=== PATIENT | female | born 1980 ===

== ENCOUNTER → 2020-04-17 12:59 | Outpatient (BNVA) | payer MEDICAID, SELFPAY | PROVIDERS: PCP Nurse Practitioner Adult Health; Referring Provider Nurse Practitioner Adult Health; Visit Provider Advanced Practice Midwife | DX: O09.299 Supervision of pregnancy with other poor reproductive or obstetric history, unspecified trimester (principal); Z3A.00 Weeks of gestation of pregnancy not specified | CPT/HCPCS: 99211 ==

== ENCOUNTER 2020-05-01 13:59 | Outpatient (REF) | payer OTHER, SELFPAY ==
[2020-05-01 16:20] LABS: MANUAL DIFF FLAG NO
[2020-05-01 16:29] LABS: Basophils Absolute Auto 0.1 X10*3/uL (0.0-0.2); Basophils Percent Auto 0.5 % (0-2); Eosinophils Absolute Auto 0.2 X10*3/uL (0.0-0.4); Eosinophils Percent Auto 1.4 % (0-4); Hematocrit 39.5 % (37-47); Hemoglobin 12.7 g/dl (12.0-16.0); Imm Gran Abs Auto 0.08 X10*3/uL (0.00-0.03); Imm Gran Pct Auto 0.7 % (0.0-0.4); Lymphocytes Percent Auto 24.7 % (20-40); Mean Corpuscular HGB Conc 32.2 g/dl (31.0-35.0); Mean Corpuscular Hemoglobin 28.4 pg (27.0-33.0); Mean Corpuscular Volume 88.4 fL (80-98); Mean Platelet Volume 10.6 fL (9.4-12.3); Monocytes Percent Auto 8.3 % (2-11); Neutrophils Absolute Auto 7.7 X10*3/uL (2.0-8.3); Neutrophils Percent Auto 64.4 % (45-73); Platelet Count 339 X10*3/uL (160-400); Red Blood Count 4.47 X10*6/uL (4.20-5.50); Red Cell Distribution Width 14.2 % (11.0-16.0); White Blood Count 11.9 X10*3/uL (4.8-10.8)
[2020-05-01 17:24] LABS: Amphetamine Screen Urine Not Detected (Not Detect); Barbiturates, Urine Not Detected (Not Detect); Benzodiazepines Screen Urine Not Detected (Not Detect); Cannabinoid Screen Urine Not Detected (Not Detect); Cocaine Screen Urine Not Detected (Not Detect); Opiate Screen Urine Not Detected (Not Detect); Phencyclidine Screen Urine Not Detected (Not Detect)
[2020-05-02 07:55] LABS: HBsAGNum1 0.23 S/CO (0.00-0.99); HIV AB/AG Nonreactive (Nonreactive); HIV Num 1 0.12 S/CO (0.00-0.99); Hepatitis B Surface Antigen Negative (Negative); ~HepC Num1 0.12 S/CO (0.00-0.79); ~Hepatitis C Antibody Nonreactive (Nonreactive)
[2020-05-02 09:00] LABS: Syphilis Screen Nonreactive (Nonreactive)
[2020-05-02 23:08] LABS: Rubella IgG Antibody <0.90 index
== END 2020-05-01 14:00 | disposition home or self-care (01) ==
LOC: HO.LAB 13:59
PROVIDERS: Visit Provider Advanced Practice Midwife
DX: Z34.90 Encounter for supervision of normal pregnancy, unspecified, unspecified trimester (principal); Z86.69 Personal history of other diseases of the nervous system and sense organs
CPT/HCPCS: 36415; 80307; 85025; 86762; 86780; 86787; 86803; 86850; 87086; 87340; 87389

== ENCOUNTER 2020-05-04 11:25 | Outpatient (REF) | payer OTHER, SELFPAY ==
--- NOTE | 2020-05-04 11:30 | US_ITS ---
EXAMINATION: OBSTETRICAL ULTRASOUND, FIRST TRIMESTER HISTORY: 39-year-old with unknown LMP Viability LMP: Uncertain COMPARISON: None TECHNIQUE: Real time transabdominal imaging with color and M-mode Doppler. Transvaginal ultrasound was performed using an endovaginal probe. FINDINGS: A single, live IUP CRL of 6.1 mm c/w 6.3wks is noted. Heart Rate: 122 beats per minute. Both maternal ovaries are seen and appear normal. GESTATIONAL AGE: 1. GA from LMP: N/A wks 2. GA from AUA: 6.3 wks ESTIMATED DATE OF DELIVERY: 1. RE from LMP: N/A 2. RE from AUA: 12/25/2020 US/US OB <= 14 weeks fetus IMPRESSION: 1. A single live IUP 2. CRL corresponds to 6.3 weeks of gestation 3. Normal yolk sac Follow-up in approximately 6 weeks for NT evaluation (not scheduled). Thank you very much for this referral.
--- NOTE | 2020-05-04 11:30 | US_ITS ---
EXAMINATION: OBSTETRICAL ULTRASOUND, FIRST TRIMESTER HISTORY: 39-year-old with unknown LMP Viability LMP: Uncertain COMPARISON: None TECHNIQUE: Real time transabdominal imaging with color and M-mode Doppler. Transvaginal ultrasound was performed using an endovaginal probe. FINDINGS: A single, live IUP CRL of 6.1 mm c/w 6.3wks is noted. Heart Rate: 122 beats per minute. Both maternal ovaries are seen and appear normal. GESTATIONAL AGE: 1. GA from LMP: N/A wks 2. GA from AUA: 6.3 wks ESTIMATED DATE OF DELIVERY: 1. RE from LMP: N/A 2. RE from AUA: 12/25/2020 US/US OB transvaginal IMPRESSION: 1. A single live IUP 2. CRL corresponds to 6.3 weeks of gestation 3. Normal yolk sac Follow-up in approximately 6 weeks for NT evaluation (not scheduled). Thank you very much for this referral.
== END 2020-05-04 11:26 | disposition home or self-care (01) ==
LOC: HO.US 11:25
PROVIDERS: PCP Nurse Practitioner Adult Health; Visit Provider Advanced Practice Midwife
DX: O35.9XX0 Maternal care for (suspected) fetal abnormality and damage, unspecified, not applicable or unspecified (principal)
CPT/HCPCS: 76801; 76817

== ENCOUNTER 2020-05-20 11:53 | Emergency (ER) | payer OTHER, SELFPAY ==
[2020-05-20 11:57] VITALS: BP 138/78; PULSE 90; RESP 18; TEMP 36.7; O2SAT 99; BMI 30.8
--- NOTE | 2020-05-20 13:13 | US_ITS ---
EXAMINATION: US FIRST TRIMESTER CLINICAL INFORMATION: Cramping LMP: 05/04/2020 Beta-hCG: Unknown COMPARISON: None available. TECHNIQUE: Transabdominal imaging was performed. FINDINGS: UTERUS AND INTRAUTERINE GESTATIONAL SAC: There is a single intrauterine gestational sac. CROWN-RUMP LENGTH (CRL) : 1.95 cm, estimated age 8 weeks 4 days, estimated date of confinement is 05/04/2020 YOLK SAC: Found. HEART MOTION: 170 BPM. SUBCHORIONIC HEMORRHAGE: None OVARIES: Right: Normal Left: Normal small cyst dominant follicle 1.5 x 1.4 x 1.1 cm. FREE FLUID: None OTHER FINDINGS: None US/US OB <= 14 weeks fetus IMPRESSION: 1. Single live intrauterine . 2. Estimated age 8 weeks 4 days..
--- NOTE | 2020-05-20 13:16 | ED.PREGNANCY ---
HPI - General Chief complaint: Abdominal Pain Stated complaint: abd pain- 8 weeks preg - high risk Time Seen by Provider: 05/20/20 13:08 Source: patient Mode of arrival: ambulatory Limitations: no limitations History of Present Illness HPI Narrative: This is a 31-year-old female who is a A1 who is currently nine weeks gestation and history of migraine headaches presenting today with complaint of 3 days of intermittent cramping like lower abdominal pain some mild lower back pain states she called her canned food reconditioning inspector who advised her to come to emergency room for evaluation given her history of miscarriages. She denies any dysuria, hematuria, vaginal bleeding or discharge. States no concern for STI. No rash or lesion. No nausea vomiting. MD Complaint: abdominal pain Quality: Cramping Associated symptoms: denies other symptoms Vaginal bleeding: none Patient : Yes Related Data Previous Rx's Medication Instructions Recorded vitamin with calcium 1 tab PO DAILY 30 Days #30 tab 04/17/20 no.72-iron 27 mg-folic acid 1 mg tablet Allergies Allergy/AdvReac Type Severity Reaction Status Date / Time amoxicillin Allergy Unknown shortness Verified 05/21/20 13:34 of breath penicillin V Allergy Unknown difficulty Verified 05/21/20 13:34 breathing, shortness of breath Penicillins [PENICILLINS] Allergy Unknown UNKNOWN Verified 05/21/20 13:34 zolpidem [Ambien] Allergy Unknown hallucinati Verified 05/21/20 13:34 ons acetaminophen AdvReac Intermediate heart Verified 05/21/20 13:34 [From Excedrin Migraine] palpitations aspirin AdvReac Intermediate heart Verified 05/21/20 13:34 [From Excedrin Migraine] palpitations caffeine AdvReac Intermediate heart Verified 05/21/20 13:34 [From Excedrin Migraine] palpitations Review of Systems Review of Systems: Constitutional: No Weight loss, No Fever, No Chills, No Night Sweats, No Fatigue, No Malaise ENT/Mouth: No Hearing loss, No Ear Pain, No Nasal Congestion, No Sinus Pain, No Hoarseness, No sore throat, No Rhinorrhea, No Swallowing Difficulty Eyes: No Eye Pain, No Swelling, No Redness, No Foreign Body, No Discharge, No Vision Changes Cardiovascular: No Chest Pain, No SOB, No Dyspnea on Exertion, No Orthopnea, No Edema, No Palpitations Respiratory: No Cough, No Sputum, No Wheezing, No Smoke Exposure, No Dyspnea Gastrointestinal: No Nausea, No Vomiting, No Diarrhea, No Constipation, + abdominal Pain, No Hematochezia, No Melena Genitourinary: no irregular bleeding, No Dysuria, No Urinary Frequency, No Hematuria, No Urinary Incontinence, No Urgency, No Flank Pain, No Urinary Flow Changes Musculoskeletal: No joint pain, No Myalgias, No Joint Swelling Skin: No Skin Lesions, No rash Neuro: No Weakness, No Numbness, No Paresthesias, No Loss of Consciousness, No Dizziness, No Headache Psych: No Social Issues Heme/Lymph: No Bruising, No Bleeding,No Lymphadenopathy Endocrine: No Polyuria, No Polydipsia, No Temperature Intolerance Yes all other systems are reviewed and are negative [facility] Past Medical History Medical History Miscarriage Surgical History Hx of abdominoplasty Family History Family History Mother History of left breast cancer Father No problems noted. Sister History of asthma History of bipolar disorder History of migraine Family history of MS (multiple sclerosis) Maternal Grandmother No problems noted. Maternal Grandfather No problems noted. Paternal Grandmother No problems noted. Paternal Grandfather No problems noted. 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 [employer] Current occupational exposures/hazards: Yes Physical Exam Vital Signs: Vital Signs: Last Vital Signs Temp 98.0 F 05/20/20 11:57 Pulse 74 05/20/20 13:38 Resp 16 05/20/20 13:38 BP 135/70 05/20/20 13:38 Pulse Ox 99 05/20/20 13:38 Body Mass Index 30.8 Reviewed Const: General: cooperative and healthy appearing; No acute distress or intoxicated appearing Nutritional Appearance: average body habitus Orientation/consciousness: patient oriented x3 HENMT: Head: Yes normal to inspection Ears: hearing grossly normal bilaterally Eyes: General: appearance normal, both eyes and all related structures Visual Ferguson: normal visual ferguson by confrontation Neck: Neck: Yes normal visual inspection and No tender Thyroid: Thyroid normal Chest: Chest palpation & inspection: normal inspection of the chest Resp: Effort & Inspection: normal respiratory effort Auscultation: clear to auscultation bilaterally Cardio: Jugular venous distension: no JVD Rhythm: regular rhythm Heart sounds: S1 normal heart sound present and S2 normal heart sound present GI: Inspection: Yes normal to inspection Percussion: Yes normal to percussion Auscultation: normal bowel sounds : General: Yes no CVA tenderness Back/Spine/Pelvis: Back: no CVA tenderness Skin: General skin exam: no rashes or lesions noted Neuro: General: patient oriented x3 Extrem: General: Yes normal to inspection Course Course Course Narrative: Labs show urine slightly concentrated otherwise overall stable. Ultrasound finding consistent with anticipated at 8 weeks. No vaginal bleeding or discharge or dysuria. Given her prior history of miscarriage there is some related concerns/anxiety related to this primarily the reason she came in but feels more reassured after the ultrasound. I did instruct her to increase her fluid intake and follow up with her canned food reconditioning inspector team the next 1-3 days. She feels comfortable plan. No pain or discomfort at this time. Stable for discharge. MDM - OB/Uterine Contractions Medical Records Attestation: I reviewed the patient's medical records. Lab Data Attestation: I reviewed the patient's lab results. Result diagrams: 05/20/20 13:28 05/20/20 13:28 Labs: Lab Results 05/20/20 05/20/20 05/20/20 Range/Units 13:28 13:28 13:28 WBC 14.2 H (4.8-10.8) X10*3/uL RBC 4.53 (4.20-5.50) X10*6/uL Hgb 13.2 (12.0-16.0) g/dl Hct 39.6 (37-47) % MCV 87.4 (80-98) fL MCH 29.1 (27.0-33.0) pg MCHC 33.3 (31.0-35.0) g/dl RDW 14.2 (11.0-16.0) % Plt Count 346 (160-400) X10*3/uL MPV 10.2 (9.4-12.3) fL Immature Gran % (Auto) 0.6 H (0.0-0.4) % Neut % (Auto) 74.4 H (45-73) % Lymph % (Auto) 17.1 L (20-40) % Adair % (Auto) 6.6 (2-11) % Eos % (Auto) 0.8 (0-4) % Baso % (Auto) 0.5 (0-2) % Lymph # (Auto) 2.4 (1.2-4.9) X10*3/uL Adair # (Auto) 0.9 (0.1-1.2) X10*3/uL Eos # (Auto) 0.1 (0.0-0.4) X10*3/uL Baso # (Auto) 0.1 (0.0-0.2) X10*3/uL Abs Immat Gran (auto) 0.09 H (0.00-0.03) X10*3/uL Absolute Neuts (auto) 10.6 H (2.0-8.3) X10*3/uL Absolute Nucleated RBC 0.000 (0.0-0.012) X10*3/uL Nucleated RBC % (auto) 0.0 (0.0-0.2) /100WBC Sodium 139 (135-145) mmol/L Potassium 4.0 (3.3-5.1) mmol/l Chloride 106 (96-108) mmol/L Carbon Dioxide 23 (22-29) mmol/L Anion Gap 14 (12-20) BUN 10 (9-16) mg/dL Creatinine 0.72 (0.5-1.4) mg/dL Estim Creat Clear Calc 109.4 Estimated GFR > 60 Random Glucose 84 (60-115) mg/dL Calcium 9.3 (8.4-10.2) mg/dL Total Bilirubin 0.3 (0.0-1.0) mg/dL AST 14 (5-31) U/L ALT 14 (0-31) U/L Alkaline Phosphatase 65 (39-117) U/L Total Protein 7.4 (6.5-8.0) g/dL Albumin 3.8 (3.5-5.0) g/dL Beta HCG, Quant 93884 mIU/mL Urine Color YELLOW Urine Appearance HAZY Urine pH 6.5 (5.0-8.0) Ur Specific Dowell 1.025 (1.005-1.025) Urine Protein NEG (NEG-TRACE) MG/DL Urine Glucose (UA) NEG (NEG) MG/DL Urine Ketones NEG (NEG) MG/DL Urine Blood NEG (NEG) Urine Nitrite NEG (NEG) Ur Leukocyte Esterase NEG (NEG) Urine RBC 0 (0) /HPF Urine WBC 0-2 (0-4) /HPF Ur Squamous Epith Cells 1+ /LPF Amorphous Sediment 3+ /LPF Urine Bacteria NONE /LPF Granular Casts 0-2 /LPF Blood Type 05/20/20 Range/Units 13:53 WBC (4.8-10.8) X10*3/uL RBC (4.20-5.50) X10*6/uL Hgb (12.0-16.0) g/dl Hct (37-47) % MCV (80-98) fL MCH (27.0-33.0) pg MCHC (31.0-35.0) g/dl RDW (11.0-16.0) % Plt Count (160-400) X10*3/uL MPV (9.4-12.3) fL Immature Gran % (Auto) (0.0-0.4) % Neut % (Auto) (45-73) % Lymph % (Auto) (20-40) % Adair % (Auto) (2-11) % Eos % (Auto) (0-4) % Baso % (Auto) (0-2) % Lymph # (Auto) (1.2-4.9) X10*3/uL Adair # (Auto) (0.1-1.2) X10*3/uL Eos # (Auto) (0.0-0.4) X10*3/uL Baso # (Auto) (0.0-0.2) X10*3/uL Abs Immat Gran (auto) (0.00-0.03) X10*3/uL Absolute Neuts (auto) (2.0-8.3) X10*3/uL Absolute Nucleated RBC (0.0-0.012) X10*3/uL Nucleated RBC % (auto) (0.0-0.2) /100WBC Sodium (135-145) mmol/L Potassium (3.3-5.1) mmol/l Chloride (96-108) mmol/L Carbon Dioxide (22-29) mmol/L Anion Gap (12-20) BUN (9-16) mg/dL Creatinine (0.5-1.4) mg/dL Estim Creat Clear Calc Estimated GFR Random Glucose (60-115) mg/dL Calcium (8.4-10.2) mg/dL Total Bilirubin (0.0-1.0) mg/dL AST (5-31) U/L ALT (0-31) U/L Alkaline Phosphatase (39-117) U/L Total Protein (6.5-8.0) g/dL Albumin (3.5-5.0) g/dL Beta HCG, Quant mIU/mL Urine Color Urine Appearance Urine pH (5.0-8.0) Ur Specific Dowell (1.005-1.025) Urine Protein (NEG-TRACE) MG/DL Urine Glucose (UA) (NEG) MG/DL Urine Ketones (NEG) MG/DL Urine Blood (NEG) Urine Nitrite (NEG) Ur Leukocyte Esterase (NEG) Urine RBC (0) /HPF Urine WBC (0-4) /HPF Ur Squamous Epith Cells /LPF Amorphous Sediment /LPF Urine Bacteria /LPF Granular Casts /LPF Blood Type O Positive Imaging Data Trimester OB ultrasound: Radiologist's impression: Brittany Nur 39 F 1980 [place] [address] Ultrasound Report Signed Patient: Brittany Nur#: [id number] : 1980Acct:[id number] Age/Sex: 39 / FADM Date: 05/20/20 Loc: HO.ED Attending Dr: Ordering Physician: Zacarias Skelton NP Date of Service: 05/20/20 Procedure(s): US OB <= 14 weeks fetus Accession Number(s): [id number] cc: Zacarias Skelton NP~ EXAMINATION: US FIRST TRIMESTER CLINICAL INFORMATION: Cramping LMP: 05/04/2020 Beta-hCG: Unknown COMPARISON: None available. TECHNIQUE: Transabdominal imaging was performed. FINDINGS: UTERUS AND INTRAUTERINE GESTATIONAL SAC: There is a single intrauterine gestational sac. CROWN-RUMP LENGTH (CRL) : 1.95 cm, estimated age 8 weeks 4 days, estimated date of confinement is 05/04/2020 YOLK SAC: Found. HEART MOTION: 170 BPM. SUBCHORIONIC HEMORRHAGE: None OVARIES: Right: Normal Left: Normal small cyst dominant follicle 1.5 x 1.4 x 1.1 cm. FREE FLUID: None OTHER FINDINGS: None US/US OB <= 14 weeks fetus IMPRESSION: 1. Single live intrauterine . 2. Estimated age 8 weeks 4 days.. 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 Steiner as discussed Thank you Prescriptions: No Action Plus (calcium carb) 27 mg iron- 1 mg tablet 1 tab PO DAILY 30 Days Qty: 30 RF: 11 Referrals: Dg Steiner MD [Physician] - 1 week Interventions: ED Discharge Assessment Last Done: 05/20/20 15:47 Discharge Date/Time: 05/20/20 15:50
[2020-05-20 13:34] LABS: Basophils Absolute Auto 0.1 X10*3/uL (0.0-0.2); Basophils Percent Auto 0.5 % (0-2); Eosinophils Absolute Auto 0.1 X10*3/uL (0.0-0.4); Eosinophils Percent Auto 0.8 % (0-4); Hematocrit 39.6 % (37-47); Hemoglobin 13.2 g/dl (12.0-16.0); Imm Gran Abs Auto 0.09 X10*3/uL (0.00-0.03); Imm Gran Pct Auto 0.6 % (0.0-0.4); Lymphocytes Absolute Auto 2.4 X10*3/uL (1.2-4.9); Lymphocytes Percent Auto 17.1 % (20-40); MANUAL DIFF FLAG NO; Mean Corpuscular HGB Conc 33.3 g/dl (31.0-35.0); Mean Corpuscular Hemoglobin 29.1 pg (27.0-33.0); Mean Corpuscular Volume 87.4 fL (80-98); Mean Platelet Volume 10.2 fL (9.4-12.3); Monocytes Absolute Auto 0.9 X10*3/uL (0.1-1.2); Monocytes Percent Auto 6.6 % (2-11); Neutrophils Absolute Auto 10.6 X10*3/uL (2.0-8.3); Neutrophils Percent Auto 74.4 % (45-73); Platelet Count 346 X10*3/uL (160-400); Red Blood Count 4.53 X10*6/uL (4.20-5.50); Red Cell Distribution Width 14.2 % (11.0-16.0); White Blood Count 14.2 X10*3/uL (4.8-10.8)
[2020-05-20 13:36] LABS: Glucose Urine UA NEG (NEG); Leukocyte Esterase Urine NEG (NEG); Nitrite Urine NEG (NEG); PH 6.5 (5.0-8.0); Specific Gravity - Urine 1.025 (1.005-1.025); Urine Blood NEG (NEG); Urine Ketones NEG (NEG); Urine Protein NEG (NEG-TRACE)
[2020-05-20 13:37] LABS: Appearance Urine HAZY; Color Urine YELLOW
[2020-05-20 13:38] VITALS: BP 135/70; PULSE 74; RESP 16; O2SAT 99
[2020-05-20] MEDS: 0.9 % Sodium Chloride 1,000 ML 999 ML IV (13:38)
[2020-05-20 13:47] LABS: RBC Urine 0 /HPF (0); Squamous Epithelial Cell Urine 1+ /LPF; WBC Urine 0-2 /HPF (0-4)
[2020-05-20 13:48] LABS: Amorphous Sediment Urine 3+ /LPF; Granular Casts Urine 0-2 /LPF
[2020-05-20 14:05] LABS: Alanine Aminotransferase 14 U/L (0-31); Albumin Level 3.8 g/dL (3.5-5.0); Alkaline Phosphatase 65 U/L (39-117); Anion Gap 14 (12-20); Aspartate Amino Transferase 14 U/L (5-31); Bilirubin Total 0.3 mg/dL (0.0-1.0); Blood Urea Nitrogen 10 mg/dL (9-16); Calcium 9.3 mg/dL (8.4-10.2); Carbon Dioxide 23 mmol/L (22-29); Chloride 106 mmol/L (96-108); Creatinine Clr Calc Pharmacy 109.4; Estimated Glomerular Filt Rate > 60; Glucose Random 84 mg/dL (60-115); Sodium 139 mmol/L (135-145); Total Protein 7.4 g/dL (6.5-8.0)
[2020-05-20 14:49] LABS: HCG Quantitative 66216 mIU/mL
== END 2020-05-20 15:50 | disposition home or self-care (01) ==
PROVIDERS: Nurse Practitioner Primary Care; Emergency Provider Emergency Medicine; PCP Nurse Practitioner Adult Health
DX: O20.0 Threatened abortion (principal); O09.521 Supervision of elderly multigravida, first trimester; Z3A.08 8 weeks gestation of pregnancy
CPT/HCPCS: 36415; 76801; 80053; 81001; 84702; 85025; 86900; 86901; 96360; 99284

== ENCOUNTER 2020-05-21 13:21 | Outpatient (REF) | payer OTHER, SELFPAY ==
[2020-05-21 17:02] LABS: Appearance Urine CLOUDY; Color Urine YELLOW; Glucose Urine UA NEG (NEG); Leukocyte Esterase Urine NEG (NEG); Nitrite Urine NEG (NEG); Urine Blood NEG (NEG); Urine Ketones NEG (NEG); Urine Protein NEG (NEG-TRACE)
== END 2020-05-21 13:22 | disposition home or self-care (01) ==
LOC: HO.LAB 13:21
PROVIDERS: Visit Provider Advanced Practice Midwife
DX: O26.899 Other specified pregnancy related conditions, unspecified trimester (principal); R10.9 Unspecified abdominal pain; Z3A.00 Weeks of gestation of pregnancy not specified
CPT/HCPCS: 81003; 99212

== ENCOUNTER 2020-05-29 11:06 | Outpatient (REF) | payer OTHER, SELFPAY ==
[2020-05-30 20:53] LABS: C. trachomatis RNA TMA NOT DETECTED (NOT DETECTED); N. gonorrhoeae RNA TMA NOT DETECTED (NOT DETECTED)
[2020-05-31 17:07] LABS: HPV mRNA E6/E7 rflx Not Detected (Not Detected)
== END 2020-05-29 11:07 | disposition home or self-care (01) ==
LOC: HO.LAB 11:06
PROVIDERS: PCP Nurse Practitioner Adult Health; Visit Provider Advanced Practice Midwife
DX: O09.529 Supervision of elderly multigravida, unspecified trimester (principal); Z13.31 Encounter for screening for depression
CPT/HCPCS: 81003; 87491; 87591; 87624; 88142; 99212

== ENCOUNTER 2020-06-15 13:54 | Outpatient (REF) | payer OTHER, SELFPAY ==
--- NOTE | 2020-06-15 13:59 | US_ITS ---
EXAMINATION: OBSTETRICAL ULTRASOUND, FIRST TRIMESTER HISTORY: 39-year-old at 12.3 weeks of gestation AMA NT screening COMPARISON: 05/20/2020 TECHNIQUE: Real time transabdominal imaging with color and M-mode Doppler. FINDINGS: A single, live IUP CRL of 63.6 mm c/w 12.6wks is noted. Heart Rate: 160 beats per minute. Normal yolk sac seen. NT was 1.34.mm. NB Present The embryo appears sonographically wnl for this GA. Left ovary is within normal limits. The right ovary is not visualized. GESTATIONAL AGE: 1. Established GA: 12.3 wks 2. GA from AUA: 12.6 wks ESTIMATED DATE OF DELIVERY: 1. Established RE: 12/25/2020 2. RE from [facility]: 12/22/2020 US/US OB 1T nuc measure IMPRESSION: 1. A single live IUP 2. Size equals dates 3. NT of 1.34 mm MFM Consultation: I reviewed the ultrasound findings along with significance of NT measurement. The NT of less than 3mm is generally reassuring. However, the sensitivity for T21 detection is only 60%. I reviewed the availability of serum aneuploidy screening which includes cell-free DNA and placental protein based tests. I discussed the sensitivity, false-positive rate, and other limitations associated with each test. I also reviewed the availability of invasive diagnostic tests that are associated small but definite risk of miscarriage. We also reviewed the differences between screening tests and diagnostic tests. After our discussion, she opted for the First trimester screening that is based on cell-free DNA or non-invasive testing (NIPT). The result will be faxed to your office in approximately 7 days. A follow up at 18 weeks for survey has been scheduled. Thank you very much for this referral. Majority of this visit was spent reviewing her care and counselling her in face to face time: Total time: 30 min (2, 20, 8)
== END 2020-06-15 13:55 | disposition home or self-care (01) ==
LOC: HO.US 13:54
PROVIDERS: Visit Provider Advanced Practice Midwife
DX: O09.521 Supervision of elderly multigravida, first trimester (principal); O26.841 Uterine size-date discrepancy, first trimester; Z3A.12 12 weeks gestation of pregnancy
CPT/HCPCS: 76813

== ENCOUNTER → 2020-06-28 13:02 | Outpatient (BNVA) | payer OTHER, SELFPAY | PROVIDERS: PCP Nurse Practitioner Adult Health; Visit Provider Advanced Practice Midwife | DX: O09.899 Supervision of other high risk pregnancies, unspecified trimester (principal); O09.522 Supervision of elderly multigravida, second trimester; Z3A.14 14 weeks gestation of pregnancy | CPT/HCPCS: 81003; 99212 ==

== ENCOUNTER 2020-06-29 09:00 | Outpatient (REF) | payer OTHER, SELFPAY ==
[2020-06-29 09:47] LABS: Courtesy Draw Natera Courtesy Draw
== END 2020-06-29 09:01 | disposition home or self-care (01) ==
LOC: HO.LAB 09:00
PROVIDERS: PCP Nurse Practitioner Adult Health; Visit Provider Advanced Practice Midwife
DX: O09.522 Supervision of elderly multigravida, second trimester (principal); Z3A.00 Weeks of gestation of pregnancy not specified
CPT/HCPCS: 36415

== ENCOUNTER 2020-07-04 10:17 | Outpatient (REF) | payer OTHER, SELFPAY | END 2020-07-04 10:18 | disposition home or self-care (01) | LOC: HO.LAB 10:17 | PROVIDERS: Visit Provider Internal Medicine | DX: Z20.822 Contact with and (suspected) exposure to COVID-19 (principal) | CPT/HCPCS: 36415; C9803; U0003; U0005 ==

== ENCOUNTER → 2020-07-19 13:07 | Outpatient (BNVA) | payer OTHER, SELFPAY | PROVIDERS: Visit Provider Advanced Practice Midwife | DX: Z34.90 Encounter for supervision of normal pregnancy, unspecified, unspecified trimester (principal) | CPT/HCPCS: 81003; 99212 ==

== ENCOUNTER 2020-07-27 13:16 | Outpatient (REF) | payer OTHER, SELFPAY ==
--- NOTE | ~2020-07-27 | US_ITS ---
EXAMINATION: US OBSTETRICAL CLINICAL INFORMATION: 40-year-old at 18.3 weeks gestation AMA COMPARISON: 06/15/2020 TECHNIQUE: Real-time transabdominal ultrasound was performed using C1-5 megahertz transducer. FINDINGS: A single, active, fetus is seen in transverse presentation. The placenta is anterior without previa, and the amniotic fluid volume is wnl. MEASUREMENTS: 1. Biparietal Diameter: 4.1 cm; 18.3 wks 2. Occipital Frontal Diameter: 5.4 cm 3. Head Circumference: 16.1 cm; 18.2 wks 4. Abdominal Circumference: 12.4 cm; 18.1 wks 5. Femur Length: 2.8 cm; 18.3 wks 6. Humerus Length: 2.6 cm; 18.1 wks 7. Tibia Length: 2.4 cm; 18.4 wks 8. Ulna Length: 2.5 cm; 19.1 wks 9. Lateral ventricle: 0.74 cm 10. Cerebellum: 1.8 cm; 18.6 wks 11. Cisterna Magna: 0.45 cm 12. Nuchal Fold: 1.99 mm 13. Heart Rate: 133 beats per minute Rt ovary: Unable to visualize Lt ovary: Unable to visualize Cervical length 3.5 cm on T/A. GESTATIONAL AGE: 1. Established GA: 18.3 wks 2. GA from [facility]: 18.3 wks ESTIMATED DATE OF DELIVERY: 1. Established RE: 12/25/2020 2. RE from [facility]: 12/25/2020 ANATOMY: Due to the poor acoustics window, the views of the four-chamber, ventricular septum, LVOT, RVOT, 3 vessel trachea, aortic and ductal arches were suboptimal. In addition the kidneys and spine views were also limited. The visualized anatomy includes but not limited to: 1. Cranium: Normal 2. Intracranial anatomy: cavum septum pellucidi, lateral ventricles, choroid plexus, cerebellum, posterior fossa, third and fourth ventricles. 3. face: orbits, lip/palate, profile, nasal bone 4. Heart: Suboptimal. 5. Diaphragm: Normal 6. Abdominal wall: Normal 7. Cord Insertion: Normal 8. Spine: Suboptimal 9. Stomach: Normal size and shape 10. Right Kidney: Suboptimal 11. Left Kidney: Suboptimal 12. 3 vessel cord: Normal 13. Upper extremity: Open hands, fifth digit. 14. Lower extremity: Tibia, fibula, bilateral feet. 15. Bladder: Normal 16. Genitalia: US/US OB /maternal detail IMPRESSION: 1. Single, living, intrauterine with appropriate biometry. 2. Limited views due to position and poor acoustics window. No abnormalities were seen in visualized anatomy. DISCUSSION: I reviewed today's ultrasound findings. We discussed the limitations of ultrasound in diagnosing aneuploidy and other congenital abnormalities. I reviewed the differences between screening test and diagnostic test. Amniocentesis was discussed and declined. She was informed that the baseline incidence of congenital abnormalities is approximately 3-5%. Not all these conditions are diagnosable in utero. RECOMMENDATIONS: 1. A follow-up in 2 weeks is been scheduled. Thank you for allowing me to participate in her care. Total time 20 minutes. The time spent was devoted to counseling the patient about the disease and diagnosis, coordinating care including reviewing her records, pertinent lab data and studies, as well as discussing diagnostic evaluation and workup, plan therapeutic interventions and future disposition of care. This includes any additional research needed to obtain further information in formulating the plan of care of this patient. This note was generated with a voice recognition program. Please excuse any errors which may have been overlooked during my review of this note. Sometimes these errors may affect the content or meaning of a given sentence.
== END 2020-07-27 13:17 | disposition home or self-care (01) ==
LOC: HO.US 13:16
PROVIDERS: PCP Nurse Practitioner Adult Health; Visit Provider Advanced Practice Midwife
DX: O09.522 Supervision of elderly multigravida, second trimester (principal); Z3A.18 18 weeks gestation of pregnancy
CPT/HCPCS: 76811

== ENCOUNTER 2020-08-10 13:16 | Outpatient (REF) | payer OTHER, SELFPAY ==
--- NOTE | ~2020-08-10 | US_ITS ---
EXAMINATION: OBSTETRICAL ULTRASOUND, Follow up HISTORY: 40-year-old at 20.3 weeks of gestation Follow-up survey AMA COMPARISON: 07/27/2020 TECHNIQUE: Real time transabdominal imaging with color and M-mode Doppler. PRESENTATION: Transverse PLACENTA LOCATION: Anterior without previa AMNIOTIC FLUID: Normal MEASUREMENTS: 1. Biparietal Diameter: 4.7 cm; 20.2 wks 2. Head Circumference: 17.6 cm; 20.1 wks 3. Abdominal Circumference: 14.5 cm; 19.6 wks 4. Femur Length: 3.3 cm; 20.4 wks 5. Heart Rate: 136 beats per minute WEIGHT: Estimated weight is 334 grams (0 lbs 12 oz) -- 30 %. Normal views of lateral cerebral ventricle, profile, nose/lips, 4ch view, LVOT, RVOT, aortic and ductal arches, three-vessel view, 3 vessel trachea view. GESTATIONAL AGE: 1. Established GA: 20.3 wks 2. GA from AUA: 20.2 wks ESTIMATED DATE OF DELIVERY: 1. Established RE: 12/25/2020 2. RE from [facility]: 12/26/2020 US/US OB follow up IMPRESSION: 1. A single fetus with appropriate interval growth. 2. Previously limited views of the anatomy were seen as listed above. No abnormalities were noted in visualized anatomy. 3. This completes the survey. I reviewed the limitations of ultrasound in diagnosing aneuploidy and other congenital abnormalities. Amniocentesis was again reviewed and she declined. She was informed that the baseline instance of congenital abnormalities and defects in the general population is approximately 3-5%. Not all these conditions are diagnosable in utero. RECOMMENDATIONS: 1. f/u PRN Thank you very much for this referral. This note was generated with a voice recognition program. Please excuse any errors which may have been overlooked during my review of this note. Sometimes these errors may affect the content or meaning of a given sentence.
== END 2020-08-10 13:17 | disposition home or self-care (01) ==
LOC: HO.US 13:16
PROVIDERS: Visit Provider Advanced Practice Midwife
DX: Z34.90 Encounter for supervision of normal pregnancy, unspecified, unspecified trimester (principal)
CPT/HCPCS: 76816

== ENCOUNTER 2020-08-15 11:53 | Emergency (ER) | payer OTHER, SELFPAY ==
--- NOTE | ~2020-08-15 | NM_ITS ---
EXAMINATION: PULMONARY PERFUSION STUDY CLINICAL INFORMATION: Chest pain, shortness of breath, Covid positive, 21 weeks with shortness of breath. COMPARISON: No previous lung scan is available for comparison. A radiograph of the chest dated 08/15/2020, the same date as this lung scan, is available for comparison. TECHNIQUE: Following the intravenous injection of 0.5 mCi Tc-99m MAA, an 8-view perfusion study was performed using a gamma scintillation camera. A reduced dose of radiopharmaceutical was administered because of the patient's state. FINDINGS: No segmental perfusion defects are present. There is homogeneous distribution of activity bilaterally. There are no focal anatomic appearing perfusion defects present. NM/NM pul perfusion IMPRESSION: Normal radionuclide lung perfusion scan.
--- NOTE | ~2020-08-15 | XR_ITS ---
EXAMINATION: XR CHEST CLINICAL INFORMATION: SOB COMPARISON: Chest 01/03/2019 TECHNIQUE: Frontal view of the chest was obtained. FINDINGS: No significant abnormality is noted involving the heart, lungs, mediastinum, bony thorax or soft tissues. XR/XR chest 1V IMPRESSION: Unremarkable chest examination.
[2020-08-15 11:58] VITALS: BP 164/89; PULSE 121; RESP 25; O2SAT 99; BMI 31.8
--- NOTE | 2020-08-15 12:00 | ED.SOB ---
HPI - SOB/Dyspnea General Chief Complaint: Chest Pain Stated Complaint: sob Time Seen by Provider: 08/15/20 11:58 Source: patient Mode of arrival: ambulatory Limitations: no limitations History of Present Illness HPI Narrative: Patient 21 works weeks 3 para 2 woke up at 05:00 with increased shortness of breath with chest tightness. Also she has been feeling congested today. No fever no cough. 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 MD elicited complaint: shortness of breath Onset (ago): hour(s) Timing: constant Severity: moderate Exacerbating factors: nothing and exertion Relieving factors: nothing Associated symptoms: chest congestion Treatment prior to arrival: none Related Data Previous Rx's Medication Instructions Recorded vitamin with calcium 1 tab PO DAILY 30 Days #30 tab 04/17/20 no.72-iron 27 mg-folic acid 1 mg tablet dexamethasone [Decadron] 6 mg PO DAILY #7 tab 08/15/20 Allergies Allergy/AdvReac Type Severity Reaction Status Date / Time amoxicillin Allergy Unknown shortness Verified 07/19/20 13:12 of breath penicillin V Allergy Unknown difficulty Verified 07/19/20 13:12 breathing, shortness of breath Penicillins [PENICILLINS] Allergy Unknown UNKNOWN Verified 07/19/20 13:12 zolpidem [Ambien] Allergy Unknown hallucinati Verified 07/19/20 13:12 ons acetaminophen AdvReac Intermediate heart Verified 07/19/20 13:12 [From Excedrin Migraine] palpitations aspirin AdvReac Intermediate heart Verified 07/19/20 13:12 [From Excedrin Migraine] palpitations caffeine AdvReac Intermediate heart Verified 07/19/20 13:12 [From Excedrin Migraine] palpitations Review of Systems Review of Systems: Constitutional : No Weight loss, No Fever, No Chills ENT/Mouth : No sore throat, No Rhinorrhea Eyes: No Eye Pain, No Swelling Cardiovascular : +Chest Pain, no palpitations Respiratory : No Cough, No Sputum, ++shortness of breath Gastrointestinal : no Nausea, No Vomiting, No Diarrhea, No abdominal Pain, no black stools Genitourinary : No Dysuria, No Urinary Frequency Musculoskeletal : No joint pain, No Myalgias, No Joint Swelling Skin : No Skin Lesions, No rash Neuro : No Weakness, No Numbness, No Dizziness, No Headache Psych : No Anxiety/Panic, No Depression Heme/Lymph: No Bruising, No Lymphadenopathy Endocrine : No Polyuria, No Polydipsia All other systems reviewed and are negative [facility] Past Medical History Medical History Miscarriage Surgical History Hx of abdominoplasty Family History Family History Mother History of left breast cancer Father No problems noted. Sister History of asthma History of bipolar disorder History of migraine Family history of MS (multiple sclerosis) Maternal Grandmother No problems noted. Maternal Grandfather No problems noted. Paternal Grandmother No problems noted. Paternal Grandfather No problems noted. 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 Oriented X3. No acute distress. Slightly anxious Eyes: Pupils equal, round and reactive to light. ENT: Pharynx normal. Neck: Normal inspection. Neck supple. CVS: Tachycardia no murmur. Pulses normal. Respiratory:+ respiratory distress. Breath sounds normal. Abdomen: Soft and nontender. Bowel sounds are present, gravid uterus no CVA tenderness Skin: Skin warm and dry. Normal skin color. Normal skin turgor. Extremities: No lower extremity edema. No calf tenderness Neuro: Oriented X 3. No motor deficit. No sensory deficit. MDM - SOB/Dyspnea MDM Narrative Medical decision making narrative: Patient with COVID-19 positive without any lung infiltrate saturating 100% at room air patient had transient elevated blood pressure 164/89 repeat blood pressure was 120/80 in 4 hours urine negative for protein, LFTs are normal normal platelet counts patient does not meet the criteria for preeclampsia at this time. Patient V/Q scan is negative for PE patient's symptoms of likely from COVID-19. Will give her Decadron p.o. and Will discharge patient home. Case discussed Dr. Steiner will follow-up as outpatient Medical Records Attestation: I reviewed the patient's medical records. Lab Data Attestation: I reviewed the patient's lab results. Result diagrams: 08/15/20 12:33 08/15/20 12:33 Labs: Lab Results 08/15/20 08/15/20 08/15/20 Range/Units 12:33 12:33 12:33 WBC 8.9 (4.8-10.8) X10*3/uL RBC 4.46 (4.20-5.50) X10*6/uL Hgb 12.5 (12.0-16.0) g/dl Hct 37.8 (37-47) % MCV 84.8 (80-98) fL MCH 28.0 (27.0-33.0) pg MCHC 33.1 (31.0-35.0) g/dl RDW 13.8 (11.0-16.0) % Plt Count 293 (160-400) X10*3/uL MPV 10.1 (9.4-12.3) fL Immature Gran % (Auto) 1.6 H (0.0-0.4) % Neut % (Auto) 78.8 H (45-73) % Lymph % (Auto) 10.4 L (20-40) % [place] % (Auto) 8.8 (2-11) % Eos % (Auto) 0.1 (0-4) % Baso % (Auto) 0.3 (0-2) % Lymph # (Auto) 0.9 L (1.2-4.9) X10*3/uL [place] # (Auto) 0.8 (0.1-1.2) X10*3/uL Eos # (Auto) 0.0 (0.0-0.4) X10*3/uL Baso # (Auto) 0.0 (0.0-0.2) X10*3/uL Abs Immat Gran (auto) 0.14 H (0.00-0.03) X10*3/uL Absolute Neuts (auto) 7.0 (2.0-8.3) X10*3/uL Absolute Nucleated RBC 0.000 (0.0-0.012) X10*3/uL Nucleated RBC % (auto) 0.0 (0.0-0.2) /100WBC PT (10.8-13.0) SEC INR (0.9-1.1) APTT (24.1-38.0) SEC Sodium 138 (135-145) mmol/L Potassium 3.2 L (3.3-5.1) mmol/L Chloride 104 (96-108) mmol/L Carbon Dioxide 23 (22-29) mmol/L Anion Gap 14 (12-20) BUN 4 L D (9-16) mg/dL Creatinine 0.59 (0.5-1.4) mg/dL Estim Creat Clear Calc 134.2 Estimated GFR > 60 Random Glucose 85 (60-115) mg/dL Calcium 8.3 L D (8.4-10.2) mg/dL Total Bilirubin 0.5 (0.0-1.0) mg/dL Direct Bilirubin < 0.2 (0.0-0.5) mg/dL AST 16 (5-31) U/L ALT 14 (0-31) U/L Alkaline Phosphatase 66 (39-117) U/L Troponin I High Sens < 3.5 (<3.5-17.0) ng/L Total Protein 6.8 (6.5-8.0) g/dL Albumin 3.4 L (3.5-5.0) g/dL Urine Color Urine Appearance Urine pH (5.0-8.0) Ur Specific [place] (1.005-1.025) Urine Protein (NEG-TRACE) MG/DL Urine Glucose (UA) (NEG) MG/DL Urine Ketones (NEG) MG/DL Urine Blood (NEG) Urine Nitrite (NEG) Ur Leukocyte Esterase (NEG) COVID-19 (TALISHA) (Negative) COVID-19 Clin Com 08/15/20 08/15/20 08/15/20 Range/Units 12:33 12:33 15:09 WBC (4.8-10.8) X10*3/uL RBC (4.20-5.50) X10*6/uL Hgb (12.0-16.0) g/dl Hct (37-47) % MCV (80-98) fL MCH (27.0-33.0) pg MCHC (31.0-35.0) g/dl RDW (11.0-16.0) % Plt Count (160-400) X10*3/uL MPV (9.4-12.3) fL Immature Gran % (Auto) (0.0-0.4) % Neut % (Auto) (45-73) % Lymph % (Auto) (20-40) % [place] % (Auto) (2-11) % Eos % (Auto) (0-4) % Baso % (Auto) (0-2) % Lymph # (Auto) (1.2-4.9) X10*3/uL [place] # (Auto) (0.1-1.2) X10*3/uL Eos # (Auto) (0.0-0.4) X10*3/uL Baso # (Auto) (0.0-0.2) X10*3/uL Abs Immat Gran (auto) (0.00-0.03) X10*3/uL Absolute Neuts (auto) (2.0-8.3) X10*3/uL Absolute Nucleated RBC (0.0-0.012) X10*3/uL Nucleated RBC % (auto) (0.0-0.2) /100WBC PT 12.0 (10.8-13.0) SEC INR 1.0 (0.9-1.1) APTT 28.6 (24.1-38.0) SEC Sodium (135-145) mmol/L Potassium (3.3-5.1) mmol/L Chloride (96-108) mmol/L Carbon Dioxide (22-29) mmol/L Anion Gap (12-20) BUN (9-16) mg/dL Creatinine (0.5-1.4) mg/dL Estim Creat Clear Calc Estimated GFR Random Glucose (60-115) mg/dL Calcium (8.4-10.2) mg/dL Total Bilirubin (0.0-1.0) mg/dL Direct Bilirubin (0.0-0.5) mg/dL AST (5-31) U/L ALT (0-31) U/L Alkaline Phosphatase (39-117) U/L Troponin I High Sens (<3.5-17.0) ng/L Total Protein (6.5-8.0) g/dL Albumin (3.5-5.0) g/dL Urine Color YELLOW Urine Appearance CLEAR Urine pH 8.0 (5.0-8.0) Ur Specific [place] 1.015 (1.005-1.025) Urine Protein NEG (NEG-TRACE) MG/DL Urine Glucose (UA) NEG (NEG) MG/DL Urine Ketones 40 (NEG) MG/DL Urine Blood NEG (NEG) Urine Nitrite NEG (NEG) Ur Leukocyte Esterase NEG (NEG) COVID-19 (TALISHA) Positive A (Negative) COVID-19 Clin Com See Note ECG Data Attestation: I personally reviewed and interpreted this ECG as follows: Interpretation: Sinus tachycardia with heart rate 117 beats per minute normal intervals normal axis no acute ST T wave changes impression sinus tachycardia no ischemia Discharge Plan Discharge Clinical Impression: COVID-19 affecting in second trimester Patient Disposition: Home, Self-Care Instructions: COVID-19 (Coronavirus Disease 2019) (ED) Additional Instructions: Precaution and cautions as advised , social distancing Take Decadron as advised Tylenol for fever report to the ER if increased shortness of breath Check blood pressure daily if it is higher than 140/90 report to the ER immediately Prescriptions: New dexamethasone [Decadron] 6 mg tablet 6 mg PO DAILY Qty: 7 RF: 0 No Action Plus (calcium carb) 27 mg iron- 1 mg tablet 1 tab PO DAILY 30 Days Qty: 30 RF: 11 Stand Alone Forms: Work/School Release
--- NOTE | 2020-08-15 12:09 | ECG_ITS ---
Test Reason : CP Blood Pressure : / mmHG Vent. Rate : 117 BPM Atrial Rate : 117 BPM P-R Int : 128 ms QRS Dur : 080 ms QT Int : 332 ms P-R-T Axes : 062 061 044 degrees QTc Int : 463 ms Sinus tachycardia Otherwise normal ECG When compared with ECG of 03-SEP-2018 19:20, No significant change was found Referred By: Rony Mccall Electronically Signed By:KORY MORA MD
[2020-08-15] MEDS: 0.9 % Sodium Chloride 1,000 ML 999 ML IVCONT (12:20)
[2020-08-15 12:37] LABS: MANUAL DIFF FLAG NO
[2020-08-15 12:45] LABS: Basophils Percent Auto 0.3 % (0-2); Eosinophils Percent Auto 0.1 % (0-4); Hematocrit 37.8 % (37-47); Hemoglobin 12.5 g/dl (12.0-16.0); Imm Gran Abs Auto 0.14 X10*3/uL (0.00-0.03); Imm Gran Pct Auto 1.6 % (0.0-0.4); Lymphocytes Absolute Auto 0.9 X10*3/uL (1.2-4.9); Lymphocytes Percent Auto 10.4 % (20-40); Mean Corpuscular HGB Conc 33.1 g/dl (31.0-35.0); Mean Corpuscular Volume 84.8 fL (80-98); Mean Platelet Volume 10.1 fL (9.4-12.3); Monocytes Absolute Auto 0.8 X10*3/uL (0.1-1.2); Monocytes Percent Auto 8.8 % (2-11); Neutrophils Percent Auto 78.8 % (45-73); Platelet Count 293 X10*3/uL (160-400); Red Blood Count 4.46 X10*6/uL (4.20-5.50); Red Cell Distribution Width 13.8 % (11.0-16.0); White Blood Count 8.9 X10*3/uL (4.8-10.8)
[2020-08-15 12:51] LABS: COVID-19 Test Positive (Negative)
[2020-08-15 12:53] LABS: Partial Thromboplastin Time 28.6 SEC (24.1-38.0)
[2020-08-15 13:14] VITALS: BP 134/84; PULSE 111; PULSE 112; RESP 20; TEMP 37.2; O2SAT 99
[2020-08-15 13:14] LABS: Alanine Aminotransferase 14 U/L (0-31); Albumin Level 3.4 g/dL (3.5-5.0); Alkaline Phosphatase 66 U/L (39-117); Anion Gap 14 (12-20); Aspartate Amino Transferase 16 U/L (5-31); Bilirubin Direct < 0.2 mg/dL (0.0-0.5); Bilirubin Total 0.5 mg/dL (0.0-1.0); Blood Urea Nitrogen 4 mg/dL (9-16); Calcium 8.3 mg/dL (8.4-10.2); Carbon Dioxide 23 mmol/L (22-29); Chloride 104 mmol/L (96-108); Creatinine Clr Calc Pharmacy 134.2; Estimated Glomerular Filt Rate > 60; Glucose Random 85 mg/dL (60-115); Potassium 3.2 mmol/L (3.3-5.1); Sodium 138 mmol/L (135-145); Total Protein 6.8 g/dL (6.5-8.0)
[2020-08-15 13:15] LABS: Troponin-I High Sensitivity < 3.5 ng/L (<3.5-17.0)
[2020-08-15 15:06] VITALS: BP 121/85; PULSE 114; RESP 21; TEMP 37; O2SAT 100
[2020-08-15 15:28] LABS: Glucose Urine UA NEG (NEG); Leukocyte Esterase Urine NEG (NEG); Nitrite Urine NEG (NEG); Specific Gravity - Urine 1.015 (1.005-1.025); Urine Blood NEG (NEG); Urine Ketones 40 MG/DL (NEG); Urine Protein NEG (NEG-TRACE)
[2020-08-15 15:29] LABS: Appearance Urine CLEAR; Color Urine YELLOW
--- NOTE | 2020-08-15 15:58 | P.CONOB_ITS ---
OB Consult Note - HPI Data Service Date: 08/15/20 Primary Care Provider: Cheri Shannon NP Narrative Consulted on Brittany Nur who is a 40 year old female presented emergency room with shortness of breath , chest tightness and congestion. On presentation blood pressure was elevated the patient was anxious and having difficulty br eathing repeat multiple blood pressures after was all within normal the workup included CBC platelets liver function tests creatinine a urine all came back normal. No headache blurring of vision or abdominal pain. heart rate check was within normal, Chest x-ray was negative so a V/Q scan was done was negative the patient does not have any lower extremity symptoms suggestive of DVT. 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 Sister History of asthma History of bipolar disorder History of migraine Family history of MS (multiple sclerosis) Maternal Grandmother No problems noted. Maternal Grandfather No problems noted. Paternal Grandmother No problems noted. Paternal Grandfather No problems noted. 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 Meds Allergies Allergy/AdvReac Type Severity Reaction Status Date / Time amoxicillin Allergy Unknown shortness Verified 07/19/20 13:12 of breath penicillin V Allergy Unknown difficulty Verified 07/19/20 13:12 breathing, shortness of breath Penicillins [PENICILLINS] Allergy Unknown UNKNOWN Verified 07/19/20 13:12 zolpidem [Ambien] Allergy Unknown hallucinati Verified 07/19/20 13:12 ons acetaminophen AdvReac Intermediate heart Verified 07/19/20 13:12 [From Excedrin Migraine] palpitations aspirin AdvReac Intermediate heart Verified 07/19/20 13:12 [From Excedrin Migraine] palpitations caffeine AdvReac Intermediate heart Verified 07/19/20 13:12 [From Excedrin Migraine] palpitations OB Flowsheet OB Flowsheet & Tools OB Flowsheet Initial Weight: Not Recorded Date -?-?-?-?-?-?-?-?-?-?-?-?- EGA Weight Gest Week Fundal Ht Present FHR move Efface % Edema BP PrePreg We Weight GTT -?-?-?-?-?-?--?-?-?-?-?-?- Glucose LV Protein Blood Type 05/01/20 -?-?-?-?-?-?-?-?-?-?-?-?- 6w 0d 182 lb 3 oz 182 lb 3 oz -?-?-?-?-?-?-?-?-?-?-?-?- 05/21/20 -?-?-?-?-?-?-?-?-?-?-?-?- 8w 6d 190 lb 126/70 190 lb -?-?-?-?-?-?-?-?-?-?-?-?- 05/29/20 -?-?-?-?-?-?-?-?-?-?-?-?- 10w 0d 186 lb 8 oz 155 116/76 18 6 lb 8 oz -?-?-?--?-?-?-?-?-?-?-?-?- 06/28/20 -?-?-?-?-?-?-?-?-?-?-?-?- 14w 2d 193 lb 150 active 118/70 193 lb -?-?-?-?-?-?-?-?-?-?-?-?- 07/19/20 -?-?-?-?-?-?-?-?-?-?-?-?- 17w 2d 195 lb 150 active absent 195 lb -?-?-?-?-?-?-?-?-?-?-?-?- 08/15/20 -?-?-?-?-?-?-?-?-?-?-?-?- w 1d 185 lb 3.013 oz 164/89 134/84 121/85 117/73 185 lb 3.013 oz -?-?-?-?-?-?-?-?-?-?-?-?- 08/17/20 -?-?-?-?-?-?-?-?-?-?-?-?- 21w 3d -?-?-?-?-?-?-?-?-?-?-?-?- RE Calculator Estimated Delivery Date Method Current WG Current Estimate 12/25/20 Ultrasound #1 21w 1d Other Estimates 11/12/20 LMP (Certain) 27w 2d 12/26/20 Ultrasound #2 21w 0d Plans RE by 6 wks U/S 12/25/20 O pos . -Hxof Abdominalplasty - Pt had extensive scarring due to post-op infection -Hx of Migraines. -unsat pap - rpt PP Panorama: initially high-risk, scant cells - rpt low-risk, male. Pt aware. Flu: declines TDap: FAS: nl, S=D, ant. placenta Male/ / Notes Visit Date: 08/17/20 No visit notes to display Visit Date: 08/15/20 No visit notes to display Visit Date: 07/19/20 Pt presents for DANIELE at 17.2 wks ga. Pt feeling tired, but otherwise well. Denies cramping or bleeding. Reports some FM. 1) Rpt Panorama low-risk, male fetus. 2) FAS ordered today. 3) Declines flu shot 4) Pap was unsatisfactory - rpt PP. Danger s/s, when to call. DANIELE in 4 wks (in office per pt preference). Yina Rudd Visit Date: 06/28/20 Pt here for DANIELE at 14.2 wks ga. Pt feeling well, no c/o. 1) We received call from [facility] today reporting high-risk results. Scant cell fraction, therefore 1:17 risk for Triploidy, Trisomy 13 and Trisomy 18. No sex reported. [facility] is willing to accept second sample. Will fill out form today and have pt proceed to lab. We discussed that this late in the afternoon there is a chance she will be unable to complete lab and will have to return on Thursday (pt going out of town for weekend). We discussed possible amniocentesis, consult with Dr. Dietrich. Will schedule for 2 wks from now, anticipating return of second panorama results. 2) Pt declines flu shot. Danger s/s, when to call. DANIELE in 3 wks. Yina Rudd Visit Date: 05/29/20 Pt here for OBPE at 10.0 wks ga. Pt feeling well. No c/o. 1) Pap, Gc/Ct today 2) Flu shot discussed, pt prefers to defer until [place] 3) Folder given 4) Extensive lower abdominal scarring after abdominoplasty post-op infection. Schedule MD Consult for discussion of possible risks to jessica daniele/. Consider growth U/S if uterine involvement. 5) EPDS = 1, no to 10. 6) NT U/S ordered and discussed. Panorama discussed. Danger s/s, when to call discussed. DANIELE in 4 wks (in office so pt can receive flu shot) Yina Rudd Visit Date: 05/21/20 No visit notes to display Visit Date: 05/01/20 39y.o , here for Nurse intake. 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 Pt reports hx of Migraines, not currently taking any medications for this .Pt also reports hx of Abdominoplasty a few years ago. .She states she eats healthy and was advised to try to stay well hydrated. pt is happy about the . pt aware of closing of Birthing center at [facility] [place], and accepts delivery at [facility]. Pt denies any past history of GDM or Hypertension. labs ordered, NT u/s discussed as well as Panorama blood test. Pt has OB physical scheduled. Attempted FHR for pt, but due to scarring in lower pelvic area from abdominoplasty, unable to hear FH. Pt aware to call office with any questions or concerns. Cynthia Cruz Jozef Past Pregnancies Del. Date GA/Weeks Outcome Route Wt Inf Gender Labor Preethi Anesthesia Location Provider Complicate 08/10/14 9 spontaneous 06/27/15 37 live - full term vaginal delivery 6 lb 5 oz Male 3 days epidural History 3 Elective abortions 1 Para 1 Spontaneous abortions 0 Hx # Term Pregnancies 1 Ectopic pregnancies 0 Hx # Pregnancies 0 Multiple births 0 OB Consult Results Labs CBC & Chem 7: 08/15/20 12:33 08/15/20 12:33 Labs: Short CBC 08/15/20 Range/Units 12:33 WBC 8.9 (4.8-10.8) X10*3/uL Hgb 12.5 (12.0-16.0) g/dl Hct 37.8 (37-47) % Plt Count 293 (160-400) X10*3/uL BMP 08/15/20 12:33 Sodium 138 Potassium 3.2 L Chloride 104 Carbon Dioxide 23 BUN 4 L D Creatinine 0.59 Calcium 8.3 L D Liver Function 08/15/20 Range/Units 12:33 Total Bilirubin 0.5 (0.0-1.0) mg/dL Direct Bilirubin < 0.2 (0.0-0.5) mg/dL AST 16 (5-31) U/L ALT 14 (0-31) U/L Alkaline Phosphatase 66 (39-117) U/L Albumin 3.4 L (3.5-5.0) g/dL Urine 08/15/20 Range/Units 15:09 Urine Color YELLOW Urine Appearance CLEAR Urine pH 8.0 (5.0-8.0) Ur Specific [place] 1.015 (1.005-1.025) Urine Protein NEG (NEG-TRACE) MG/DL Urine Glucose (UA) NEG (NEG) MG/DL OB - CN: A/P Assessment and Plan (1) COVID-19 affecting in second trimester: Status: Acute Assessment and Plan: Repeat blood pressure within 4 hours all came back normal except the 1st one the patient was anxious and having difficulty breathing which was elevated. Since there is only 1 abnormal pressure although in the severe range all other workup is negative no other signs and symptoms of preeclampsia or severe features , recommended blood pressure monitoring at home and to call for blood pressure of 140 and/or 90 and above, any blurring or vision abdominal pain headache or lower extremity swelling, decreased movement or labor warnings to be given to patient she is to call if contractions are more than 6 an hour any leakage of fluid or bleeding.. COVID management per Dr Vera
[2020-08-15 16:05] VITALS: BP 117/73; PULSE 110; RESP 20; TEMP 37.3; O2SAT 98
[2020-08-15] MEDS: dexAMETHasone 6 MG TABLET PO (16:07)
== END 2020-08-15 16:18 | disposition home or self-care (01) ==
PROVIDERS: Emergency Provider Internal Medicine; PCP Nurse Practitioner Adult Health
DX: O98.512 Other viral diseases complicating pregnancy, second trimester (principal); U07.1 COVID-19; R06.02 Shortness of breath
CPT/HCPCS: 36415; 71045; 78580; 80048; 80076; 81003; 84484; 85025; 85610; 85730; 87635; 93005; 96360; 99283; 99285; A9540; J8540

== ENCOUNTER → 2020-08-28 13:38 | Outpatient (BNVA) | payer OTHER, SELFPAY | PROVIDERS: PCP Nurse Practitioner Adult Health; Visit Provider Advanced Practice Midwife | DX: O98.512 Other viral diseases complicating pregnancy, second trimester (principal); U07.1 COVID-19; O36.8320 Maternal care for abnormalities of the fetal heart rate or rhythm, second trimester, not applicable or unspecified; Z3A.23 23 weeks gestation of pregnancy | CPT/HCPCS: 81003; 99212 ==

== ENCOUNTER 2020-08-28 14:50 | Outpatient (REF) | payer OTHER, SELFPAY ==
--- NOTE | ~2020-08-28 | US_ITS ---
EXAMINATION: ULTRASOUND OB LIMITED. CLINICAL INFORMATION: Unable to feel heart tones. COMPARISON: None TECHNIQUE: Limited abdominal ultrasound of the pelvis is performed. FINDINGS: There is a single gestational sac with visualization of pole and motion. There is a four-chamber heart with of heart rate of 130 bpm. The placenta is anterior. There is slight low volume of amniotic fluid with a deep pocket measuring 4.05 cm subsequently lobe. US/US OB limited IMPRESSION: Live solitary intrauterine fetus with a heart rate of 130 bpm. Slightly low amniotic fluid volume. Results were called to Cynthia CONDE by phone at 1538 hours.
== END 2020-08-28 14:51 | disposition home or self-care (01) ==
LOC: HO.US 14:50
PROVIDERS: PCP Nurse Practitioner Adult Health; Visit Provider Advanced Practice Midwife
DX: Z34.90 Encounter for supervision of normal pregnancy, unspecified, unspecified trimester (principal)
CPT/HCPCS: 76815

== ENCOUNTER 2020-09-10 14:38 | Outpatient (REF) | payer OTHER, SELFPAY | END 2020-09-10 14:39 | disposition home or self-care (01) | LOC: HO.LAB 14:38 | PROVIDERS: Visit Provider Internal Medicine | DX: Z20.822 Contact with and (suspected) exposure to COVID-19 (principal) | CPT/HCPCS: C9803; U0003; U0005 ==

== ENCOUNTER → 2020-09-25 13:45 | Outpatient (BNVA) | payer OTHER, SELFPAY | PROVIDERS: PCP Nurse Practitioner Adult Health; Visit Provider Advanced Practice Midwife | DX: O36.5930 Maternal care for other known or suspected poor fetal growth, third trimester, not applicable or unspecified (principal); Z13.31 Encounter for screening for depression; Z3A.27 27 weeks gestation of pregnancy | CPT/HCPCS: 81003; 99212 ==

== ENCOUNTER 2020-09-28 09:59 | Outpatient (REF) | payer OTHER, SELFPAY ==
--- NOTE | ~2020-09-28 | US_ITS ---
EXAMINATION: OBSTETRICAL ULTRASOUND, Follow up HISTORY: 40-year-old at the 27.3 weeks of gestation AMA Size date discrepancy COMPARISON: 08/28/2020 TECHNIQUE: Real time transabdominal imaging with color and M-mode Doppler. PRESENTATION: Vertex PLACENTA LOCATION: Anterior without previa AMNIOTIC FLUID: LC 11.2 cm MEASUREMENTS: 1. Biparietal Diameter: 7.0 cm; 28.1 wks 2. Head Circumference: 26.2 cm; 28.4 wks 3. Abdominal Circumference: 22.4 cm; 26.6 wks 4. Femur Length: 5.1 cm; 27.4 wks 5. Heart Rate: 138 beats per minute WEIGHT: EFW: 1053 grams (2 lbs 5 oz) -- 32 %. BIOPHYSICAL PROFILE: Motion: 2 Tone: 2 Breathin Amniotic Fluid: 2 Total score: 8/8 GESTATIONAL AGE: 1. Established GA: 27.3 wks 2. GA from AUA: 27.6 wks ESTIMATED DATE OF DELIVERY: 1. Established RE: 12/25/2020 2. RE from AUA: 12/22/2020 US/US OB follow up IMPRESSION: 1. A single active fetus is in vertex presentation 2. Size equals dates 3. Reassuring biophysical profile with normal amniotic fluid volume Thank you very much for this referral. This note was generated with a voice recognition program. Please excuse any errors which may have been overlooked during my review of this note. Sometimes these errors may affect the content or meaning of a given sentence.
== END 2020-09-28 10:00 | disposition home or self-care (01) ==
LOC: HO.US 09:59
PROVIDERS: PCP Internal Medicine; Visit Provider Advanced Practice Midwife
DX: O09.522 Supervision of elderly multigravida, second trimester (principal); O36.5920 Maternal care for other known or suspected poor fetal growth, second trimester, not applicable or unspecified; Z3A.27 27 weeks gestation of pregnancy
CPT/HCPCS: 76816

== ENCOUNTER 2020-10-05 11:49 | Outpatient (REF) | payer OTHER, SELFPAY ==
[2020-10-05 13:48] LABS: Glucose 1 Hour PP 50gm Dose 151 mg/dL (60-140)
== END 2020-10-05 11:50 | disposition home or self-care (01) ==
LOC: HO.LAB 11:49
PROVIDERS: PCP Nurse Practitioner Adult Health; Visit Provider Advanced Practice Midwife
DX: Z34.90 Encounter for supervision of normal pregnancy, unspecified, unspecified trimester (principal)
CPT/HCPCS: 36415

== ENCOUNTER 2020-10-08 07:16 | Outpatient (REF) | payer OTHER, SELFPAY ==
[2020-10-08 08:35] LABS: Glucose Fasting 94 mg/dL (60-99)
[2020-10-08 09:27] LABS: Glucose 1 Hour 185 mg/dL
[2020-10-08 11:29] LABS: Glucose 2 Hour 135 mg/dL
[2020-10-08 11:46] LABS: Glucose 3 Hour 100 mg/dL
== END 2020-10-08 07:17 | disposition home or self-care (01) ==
LOC: HO.LAB 07:16
PROVIDERS: PCP Nurse Practitioner Adult Health; Visit Provider Advanced Practice Midwife
DX: R73.09 Other abnormal glucose (principal)
CPT/HCPCS: 36415; 82951

== ENCOUNTER 2020-10-09 14:44 | Outpatient (REF) | payer OTHER, SELFPAY ==
[2020-10-09 16:52] LABS: Hematocrit 34.8 % (37-47); Hemoglobin 11.7 g/dl (12.0-16.0); Mean Corpuscular HGB Conc 33.6 g/dl (31.0-35.0); Mean Corpuscular Hemoglobin 27.9 pg (27.0-33.0); Mean Corpuscular Volume 82.9 fL (80-98); Mean Platelet Volume 10.4 fL (9.4-12.3); Platelet Count 335 X10*3/uL (160-400); Red Cell Distribution Width 14.7 % (11.0-16.0); White Blood Count 13.5 X10*3/uL (4.8-10.8)
[2020-10-09 17:20] LABS: Alanine Aminotransferase 14 U/L (0-31); Aspartate Amino Transferase 13 U/L (5-31); Blood Urea Nitrogen 8 mg/dL (9-16)
[2020-10-09 18:30] LABS: Creatinine Urine 110.92 mg/dL; Protein/Creatinine Ratio, Ur 0.11 (<0.2); Total Protein Urine Random 12 mg/dL (<12)
== END 2020-10-09 14:45 | disposition home or self-care (01) ==
LOC: HO.LAB 14:44
PROVIDERS: PCP Internal Medicine; Visit Provider Advanced Practice Midwife
DX: O09.523 Supervision of elderly multigravida, third trimester (principal); O09.293 Supervision of pregnancy with other poor reproductive or obstetric history, third trimester; O26.893 Other specified pregnancy related conditions, third trimester; O36.5930 Maternal care for other known or suspected poor fetal growth, third trimester, not applicable or unspecified; Z3A.29 29 weeks gestation of pregnancy; Z88.1 Allergy status to other antibiotic agents; Z88.0 Allergy status to penicillin; Z88.8 Allergy status to other drugs, medicaments and biological substances; Z91.09 Other allergy status, other than to drugs and biological substances
CPT/HCPCS: 36415; 81003; 84156; 84450; 84460; 84520; 85027; 99212

== ENCOUNTER → 2020-10-10 12:56 | Outpatient (BNVA) | payer OTHER, SELFPAY | PROVIDERS: PCP Internal Medicine; Visit Provider Advanced Practice Midwife ==

== ENCOUNTER → 2020-10-23 14:37 | Outpatient (BNVA) | payer OTHER, SELFPAY | PROVIDERS: PCP Internal Medicine; Visit Provider Advanced Practice Midwife | DX: Z34.93 Encounter for supervision of normal pregnancy, unspecified, third trimester (principal); Z3A.31 31 weeks gestation of pregnancy | CPT/HCPCS: 81003; 90471; 90715; 99212 ==

== ENCOUNTER 2020-11-06 14:34 | Outpatient (REF) | payer OTHER, SELFPAY ==
[2020-11-06 16:30] LABS: Hematocrit 34.6 % (37-47); Hemoglobin 11.3 g/dl (12.0-16.0); Mean Corpuscular HGB Conc 32.7 g/dl (31.0-35.0); Mean Corpuscular Hemoglobin 26.5 pg (27.0-33.0); Mean Platelet Volume 10.5 fL (9.4-12.3); Platelet Count 302 X10*3/uL (160-400); Red Blood Count 4.27 X10*6/uL (4.20-5.50); Red Cell Distribution Width 14.9 % (11.0-16.0); White Blood Count 11.6 X10*3/uL (4.8-10.8)
[2020-11-06 16:56] LABS: Alanine Aminotransferase 13 U/L (0-31); Alkaline Phosphatase 96 U/L (39-117); Anion Gap 11 (12-20); Aspartate Amino Transferase 14 U/L (5-31); Bilirubin Total 0.4 mg/dL (0.0-1.0); Blood Urea Nitrogen 8 mg/dL (9-16); C Reactive Protein 1.71 mg/dL (< or = 0.50); Calcium 9.2 mg/dL (8.4-10.2); Carbon Dioxide 23 mmol/L (22-29); Chloride 109 mmol/L (96-108); Cholesterol 165 mg/dL; Estimated Glomerular Filt Rate > 60; Glucose Random 99 mg/dL (60-115); HDL Cholesterol 52 mg/dL; LDL Cholesterol Calculated 72 mg/dl; Potassium 3.1 mmol/L (3.3-5.1); Sodium 140 mmol/L (135-145); Total Protein 6.2 g/dL (6.5-8.0); Triglycerides 207 mg/dL
[2020-11-06 16:59] LABS: Creatinine Urine 60.79 mg/dL; Protein/Creatinine Ratio, Ur 0.18 (<0.2); Total Protein Urine Random 11 mg/dL (<12)
[2020-11-06 17:17] LABS: Erythrocyte Sedimentation Rate 51 MM/HR (0-20)
== END 2020-11-06 14:35 | disposition home or self-care (01) ==
LOC: HO.LAB 14:34
PROVIDERS: Internal Medicine Rheumatology; PCP Internal Medicine; Visit Provider Advanced Practice Midwife
DX: O09.523 Supervision of elderly multigravida, third trimester (principal); O26.893 Other specified pregnancy related conditions, third trimester; O36.5930 Maternal care for other known or suspected poor fetal growth, third trimester, not applicable or unspecified; R51.9 Headache, unspecified; R12 Heartburn; R03.0 Elevated blood-pressure reading, without diagnosis of hypertension; Z3A.33 33 weeks gestation of pregnancy
CPT/HCPCS: 36415; 80053; 80061; 81003; 84156; 85027; 85652; 86140; 99212

== ENCOUNTER → 2020-11-07 12:54 | Outpatient (BNVA) | payer OTHER, SELFPAY | PROVIDERS: PCP Internal Medicine; Visit Provider Advanced Practice Midwife | DX: O13.3 Gestational [pregnancy-induced] hypertension without significant proteinuria, third trimester (principal); Z3A.33 33 weeks gestation of pregnancy | CPT/HCPCS: 99212 ==

== ENCOUNTER 2022-02-23 13:43 | Emergency (ER) | payer MEDICAID, SELFPAY ==
--- NOTE | ~2022-02-23 | XR_ITS ---
EXAMINATION: XR CHEST CLINICAL INFORMATION: Chest pain COMPARISON: None TECHNIQUE: Frontal view of the chest was obtained. FINDINGS: No significant abnormality is noted involving the heart, lungs, mediastinum, bony thorax or soft tissues. XR/XR chest 1V IMPRESSION: Normal chest x-ray.
--- NOTE | 2022-02-23 14:49 | ECG_ITS ---
Test Reason : CP Blood Pressure : / mmHG Vent. Rate : 075 BPM Atrial Rate : 075 BPM P-R Int : 126 ms QRS Dur : 082 ms QT Int : 386 ms P-R-T Axes : 046 027 022 degrees QTc Int : 431 ms Normal sinus rhythm Normal ECG When compared with ECG of 15-AUG-2020 12:01, Vent. rate has decreased BY 42 BPM Referred By: Generic ED Physician Electronically Signed By:DINA ANGUIANO
[2022-02-23 14:52] VITALS: BP 185/103; PULSE 71; RESP 18; TEMP 36.1; O2SAT 100; BMI 32.4
[2022-02-23 15:12] LABS: MANUAL DIFF FLAG NO
[2022-02-23 15:14] LABS: Basophils Absolute Auto 0.1 X10*3/uL (0.0-0.2); Basophils Percent Auto 0.8 % (0-2); Eosinophils Absolute Auto 0.2 X10*3/uL (0.0-0.4); Eosinophils Percent Auto 1.7 % (0-4); Hematocrit 43.1 % (37.0-47.0); Hemoglobin 14.4 g/dl (12.0-16.0); Imm Gran Abs Auto 0.05 X10*3/uL (0.00-0.03); Imm Gran Pct Auto 0.5 % (0.0-0.4); Lymphocytes Absolute Auto 2.5 X10*3/uL (1.2-4.9); Lymphocytes Percent Auto 24.6 % (20-40); Mean Corpuscular HGB Conc 33.4 g/dl (31.0-35.0); Mean Corpuscular Volume 83.7 fL (80.0-98.0); Mean Platelet Volume 9.9 fL (9.4-12.3); Monocytes Absolute Auto 0.7 X10*3/uL (0.1-1.2); Monocytes Percent Auto 7.2 % (2-11); Neutrophils Absolute Auto 6.6 x10*3/uL (2.0-8.3); Neutrophils Percent Auto 65.2 % (45-73); Platelet Count 355 X10*3/uL (160-400); Red Blood Count 5.15 X10*6/uL (4.20-5.50); Red Cell Distribution Width 13.7 % (11.0-16.0); White Blood Count 10.1 X10*3/uL (4.8-10.8)
[2022-02-23 15:33] LABS: Anion Gap 15 (12-20); Blood Urea Nitrogen 12 mg/dL (9-16); Calcium 9.4 mg/dL (8.4-10.2); Carbon Dioxide 25 mmol/L (22-29); Chloride 108 mmol/L (96-108); Creatinine Clr Calc Pharmacy 108.5; Estimated Glomerular Filt Rate > 60; Glucose Random 87 mg/dL (60-115); Potassium 3.5 mmol/L (3.3-5.1); Sodium 144 mmol/L (135-145)
[2022-02-23 15:40] LABS: Troponin-I High Sensitivity < 3.5 ng/L (<3.5-17.0)
== END 2022-02-23 21:34 | disposition left against medical advice (07) ==
PROVIDERS: Emergency Provider Emergency Medicine; PCP Nurse Practitioner Adult Health
DX: R07.89 Other chest pain (principal); I10 Essential (primary) hypertension; Z79.899 Other long term (current) drug therapy
CPT/HCPCS: 36415; 71045; 80048; 84484; 85025; 93005; 99283

== ENCOUNTER 2023-07-06 09:53 | Emergency (ER) | payer SELFPAY ==
[2023-07-06 10:12] VITALS: BP 163/73; PULSE 91; RESP 18; TEMP 36.3; O2SAT 98; BMI 35.0
--- NOTE | 2023-07-06 11:56 | ED.SKABFB ---
HPI - Skin/Abscess/Foreign Bdy General Chief complaint: Skin/Abscess/Foreign Body Stated complaint: L foot pain/change of color Time Seen by Provider: 07/06/23 11:28 Source: patient, RN notes reviewed and old records reviewed Mode of arrival: ambulatory History of Present Illness HPI narrative: 43 yo female w/no sig PMHx presents to the ED c/o painful lesions to plantar aspect of left foot w/crackled/peeling skin x3 months worsening over the past 5 days. She has not received any medical care or taken any OTC medications for management of symptoms. denies fever, chills, drainage from area, trauma. Admits wears shoes/socks often. MD complaint: lesion Onset (ago): day(s) Location: L foot Related Data Previous Rx's Medication Instructions Recorded vitamin with calcium 1 tab PO DAILY 30 days #30 tabs 04/17/20 no.72-iron 27 mg-folic acid 1 mg tablet ( Plus (calcium carbonate)) dexamethasone 6 mg tablet 6 mg PO DAILY #7 tabs 08/15/20 (Decadron) famotidine 20 mg tablet (Pepcid) 20 mg PO BID 4 weeks #56 tabs 11/06/20 clotrimazole 1 % topical cream 1 appl topical BID 4 weeks #45 07/06/23 grams Allergies Allergy/AdvReac Type Severity Reaction Status Date / Time amoxicillin Allergy Unknown shortness Verified 07/06/23 10:14 of breath penicillin V Allergy Unknown difficulty Verified 07/06/23 10:14 breathing, shortness of breath Penicillins [PENICILLINS] Allergy Unknown UNKNOWN Unverified 07/06/23 10:14 zolpidem [Ambien] Allergy Unknown hallucinati Verified 07/06/23 10:14 ons bee pollen [bee stings] Allergy Anaphylaxis Verified 07/06/23 10:14 acetaminophen AdvReac Intermediate heart Verified 07/06/23 10:14 [From Excedrin Migraine] palpitations aspirin AdvReac Intermediate heart Verified 07/06/23 10:14 [From Excedrin Migraine] palpitations caffeine AdvReac Intermediate heart Verified 07/06/23 10:14 [From Excedrin Migraine] palpitations Review of Systems Review of Systems: Constitutional: No Fever, No Chills Cardiovascular: No Chest Pain, No SOB Respiratory: No Cough Gastrointestinal: No Nausea, No Vomiting, No Abdominal pain Musculoskeletal: No joint pain, No Myalgias Skin: + Skin Lesions L foot, No rash Neuro: No Weakness, No Numbness, No Paresthesias Yes all other systems are reviewed and are negative [facility] Past Medical History Attestation statement: The following information was validated with the patient. Source: old records reviewed Medical History Miscarriage Surgical History Hx of abdominoplasty Family History Family History Mother History of left breast cancer Father No problems noted. Sister History of asthma History of bipolar disorder History of migraine Family history of MS (multiple sclerosis) Maternal Grandmother No problems noted. Maternal Grandfather No problems noted. Paternal Grandmother No problems noted. Paternal Grandfather No problems noted. 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 [employer] Current occupational exposures/hazards: Yes Physical Exam Vital Signs: Vital Signs: Last Vital Signs Temp 97.3 F 07/06/23 10:12 Pulse 91 07/06/23 10:12 Resp 18 07/06/23 10:12 BP 163/73 H 07/06/23 10:12 Pulse Ox 98 07/06/23 10:12 O2 Del Method Room Air 07/06/23 10:12 BMI result Body Mass Index 35.0 Const: General: healthy appearing Nutritional Appearance: well nourished Orientation/consciousness: patient oriented x3 Limitations: no limitations HEENT: Head: Yes normal to inspection and Yes atraumatic Ears: hearing grossly normal bilaterally General nose exam: Normal external nose present Face and sinus: Yes normal facial exam Eyes: General: appearance normal, both eyes and all related structures EOM: EOMs intact bilaterally Neck: Neck: Yes normal visual inspection and Yes no meningeal signs Resp: Effort & Inspection: normal respiratory effort and no respiratory distress Cardio: Rate: regular rate Peripheral pulses: Peripheral pulses 2+ throughout Skin: Other: +dry/correct skin noted to plantar aspect of left foot between the 3rd and 5th toes. + superficial blisters noted plantar aspect without tenderness. No surrounding erythema/cellulitis. No streaking. No fluctuance/induration or active drainage Wounds: no wounds Neuro: General: patient oriented x3 and no meningeal signs Cranial nerves: Yes CN's II-XII intact bilaterally Gait exam (Neuro): Normal gait present Extrem: General: Yes normal to inspection Medical Decision Making Medical Decision Making MDM Narrative: 43 yo female w/no sig PMHx presents to the ED c/o painful lesions to plantar aspect of left foot w/crackled/peeling skin x3 months worsening over the past 5 days. On physical examination VSS, NAD, PE as above c/w tinea pedis. No appreciable erythematous/warmth, swelling, or current drainage of blood or fluid. Low suspicion of infection/abscess/cellulitis. No indication of trauma or injury to the L foot. Plan: Topical antifungal, dermatology follow-up Differential Diagnosis Differential Diagnoses: The differential diagnosis associated with the presentation includes fungal infection trauma/injury plantar wart abscess cellulitis External Record Review External record reviewed: Inpatient record, Office record, Outpatient record, Prior outpatient labs, Prior outpatient radiology, Primary care record and Outside ED record Tests considered The following testing was considered but not selected: As above Prescription Management I considered prescription management with: Other Discharge Plan Discharge Clinical Impression: Tinea pedis Patient Disposition: Home, Self-Care Instructions: Athlete's Foot (ED) Additional Instructions: You have athlete's foot, which is a fungal infection Please use topical clotrimazole cream as prescribed Follow-up with Dermatology in her doctor as needed If area begins to look infected, is red there is pus drainage area fever return to the ED Prescriptions: New clotrimazole 1 % cream 1 appl topical BID 28 Days Qty: 45 0RF No Action dexamethasone [Decadron] 6 mg tablet 6 mg PO DAILY Qty: 7 0RF Plus (calcium carb) 27 mg iron- 1 mg tablet 1 tab PO DAILY 30 Days Qty: 30 11RF famotidine [Pepcid] 20 mg tablet 20 mg PO BID 28 Days Qty: 56 2RF Referrals: Cheri Shannon [employer] [facility] [employer] [Primary Care Provider] - 3 days Interventions: ED Discharge Assessment Last Done: 07/06/23 12:56 Discharge Date/Time: 07/06/23 12:56
--- NOTE | 2023-07-06 12:51 | PC.NURSE ---
pt i a&ox4 coming in with blisters on foot, reports it hasnt popped. denies any other symptom.
== END 2023-07-06 12:56 | disposition home or self-care (01) ==
PROVIDERS: Emergency Provider Emergency Medicine; PCP Nurse Practitioner Adult Health
DX: M79.672 Pain in left foot (principal); B35.3 Tinea pedis
CPT/HCPCS: 99283